=== PATIENT | female | born 1985 | race American Indian/Alaskan Native ===

== ENCOUNTER 2018-09-02 13:41 | Outpatient (CLI) | payer OTHER ==
[2018-09-02] MEDS ORDERED: LACTATED RINGERS 500 ML IV ONE (14:15)
[2018-09-02 14:54] LABS: Bacteria,Urine 1+ /HPF (Negative); Bilirubin,Urine NEG (Negative); Blood,Urine NEG (Negative); Color,Urine Yellow (Yellow); Mucus,Urine FEW /HPF; Protein,Urine <15 mg/dL mg/dL (Negative); Urobilinogen,Urine < 2.0 mg/dL (<2.0)
[2018-09-02 15:22] VITALS: BP 112/72
[2018-09-02 15:37] LABS: Alanine Aminotransferase 13 units/L (7-56); Uric Acid 2.8 mg/dL (3.5-7.6)
[2018-09-02 15:45] LABS: Basophils # (Auto) 0.1 K/mm3 (0.0-0.1); Eosinophils # (Auto) 0.1 K/mm3 (0.0-0.4); Eosinophils % (Auto) 1.7 % (0.0-4.3); Hematocrit 31.8 % (30.3-42.9); Hemoglobin 10.6 gm/dl (10.1-14.3); Lymphocytes % (Auto) 14.6 % (13.4-35.0); Mean Corpuscular HGB Conc 34 % (30-34); Mean Corpuscular Volume 91 fl (79-97); Monocytes # (Auto) 0.9 K/mm3 (0.0-0.8); Monocytes % (Auto) 13.8 % (0.0-7.3); Platelet Count 229 K/mm3 (140-440); Red Blood Count 3.49 M/mm3 (3.65-5.03); Red Cell Distribution Width 13.7 % (13.2-15.2)
== END 2018-09-02 16:12 | disposition home or self-care (01) ==
LOC: TRG 13:41
PROVIDERS: ATTEND Obstetrics & Gynecology
DX: O13.3 Gestational [pregnancy-induced] hypertension without significant proteinuria, third trimester (principal); Z3A.33 33 weeks gestation of pregnancy
CPT/HCPCS: 36415; 59025; 81001; 82565; 83615; 84450; 84460; 84550; 85025

== ENCOUNTER 2018-10-06 10:48 | Inpatient (IN) | payer OTHER ==
--- NOTE | 2018-10-06 13:12 | History and Physical Report ---
History of Present Illness Date of examination: 10/06/18 Date of admission: 10/06/18 10:48 History of present illness: Patient seen and [facility] maternal- medicine today with elevated blood pressures due to her gestational age and combination of gestational diabetes recommendations for delivery Menstrual History Regularity: regular Menses every: 28 days Duration: 6-7 LMP: 01/16/2018 LMP reliability: definite LMP character: normal test type: urine test Date: 04/22/2018 BC at conception: none Planned ? no EDC Calculations LMP: 10/23/2018 EDC Confirmation: 10/23/2018 Past History : 2 Term Births: 1 Living Children: 1 Para: 1 # 1 Delivery date: 2009 Weeks Gestation: FT Delivery type: Anesthesia type: epidural Delivery location: [facility] Infant Sex: Female weight: 8-2 Comments: CPD Past Medical History: Negative Past Medical History Past Medical History Abnormal PAP: negative MARILYN Exposure: negative Infertility: negative Uterine Anomaly: negative Uterine Surgery (not C/S): negative Other Gynecologic Problems: negative Medical History Comments: NEG Family Hx: DM HTN Social Hx: NO E/T/D HOSPITAL REG Infection History Varicella/Chicken Pox Status: Previous Disease Genetic History Congenital Heart Defect: Mom: no Dad: no Ely Disease: Mom: no Dad: no Thalassemia Mom: no Dad: no Neural Tube Defect Mom: no Dad: no Down's Syndrome Mom: no Dad: no Anibal-Sachs Mom: no Dad: no Sickle Cell Disease/Trait Mom: no Dad: no Hemophilia Mom: no Dad: no Muscular Dystrophy Mom: no Dad: no Cystic Fibrosis Mom: no Dad: no Ellis Chorea Mom: no Dad: no Mental Retardation Mom: no Dad: no Fragile X Mom: no Dad: no Other Genetic/Chromosomal Disorder Mom: no Dad: no Child w/other defect Mom: no Dad: no Enviromental Exposures Xray Exposure: no Medication, drug, or alcohol use since LMP: no Chemical/Other Exposure: no Exposure to Cat Liter: no Hx of Parvovirus (Fifth Disease): no Occupational Exposure to Children: none Current Allergies (reviewed today): No known allergies Past History Past Medical History: other (See HPI) Past Surgical History: section, other (See HPI) FLOW FLOOR ATTENDANT History: other (See HPI) Family/Genetic History: other (See HPI) Social history: other (See HPI) - Obstetrical History Expected Date of Delivery: 10/23/18 Actual Gestation: 37 Week(s) 4 Day(s) : 2 Para: 1 Hx # Term Pregnancies: 1 Number of Pregnancies: 0 Spontaneous Abortions: 0 Induced : 0 Number of Living Children: 1 Medications and Allergies Allergies Allergy/AdvReac Type Severity Reaction Status Date / Time No Known Allergies Allergy Unverified 09/02/18 14:41 Home Medications Medication Instructions Recorded Confirmed Last Taken Type Plus Tablet 1 tab PO DAILY 10/06/18 10/06/18 1 Day Ago History ~10/05/18 Review of Systems Constitutional: other (See HPI) - Vital Signs Vital signs: Vital Signs Pulse BP 75 203/106 10/06/18 12:28 10/06/18 12:28 Temp Pulse Resp BP Pulse Ox 97.0 F L 72 20 144/83 10/06/18 12:29 10/06/18 13:03 10/06/18 12:29 10/06/18 13:03 - Physical Exam Breasts: Positive: deferred Cardiovascular: Regular rate Lungs: Positive: Normal air movement Abdomen: Positive: normal appearance, soft Genitourinary (Female): Positive: normal external genitalia Uterus: Positive: enlarged - Obstetrical FHR: category 1 Uterine Contraction Pattern: Absent Uterine Tone Measurement Phase: Resting Results All other labs normal. Assessment and Plan - Patient Problems (1) Gestational diabetes Current Visit: Yes Status: Acute Qualifiers: Gestational diabetes mellitus control: diet-controlled Trimester: third trimester Qualified Code(s): O24.410 - Gestational diabetes mellitus in , diet controlled (2) Gestational hypertension Current Visit: Yes Status: Acute Qualifiers: Trimester: third trimester Qualified Code(s): O13.3 - Gestational [-induced] hypertension without significant proteinuria, third tri mester Plan to address problem: Patient seen and [facility] maternal- medicine today with elevated blood pressures due to her gestational age and combination of gestational diabetes recommendations for delivery (3) Uterine scar from previous delivery affecting Current Visit: Yes Status: Acute Plan to address problem: Patient admitted for repeat section. Patient informed the risks of the surgery include bleeding possibly bleeding heavy enough to require blood transfusion, infection possible damage to bowel bladder ureter. All questions answered. Patient agrees to proceed (4) BMI 45.0-49.9, adult Current Visit: Yes Status: Acute (5) GBS carrier Current Visit: Yes Status: Acute
[2018-10-06] MEDS ORDERED: LACTATED RINGERS 1,000 ML ONE (13:46)
[2018-10-06] MEDS ORDERED: APRESOLINE IV PRN (13:55)
--- NOTE | 2018-10-06 13:59 | Event Note ---
Date: 10/06/18 Patient denies any headache visual disturbances or abdominal pain. Patient's surgery was delayed to the semen due to her eating this morning. Patient is stable without any signs of symptoms of preeclampsia. Patient initially form nurses that she did not want blood products. I began discussing the risks of the surgery patient states that she desires blood products especially in cases of life and . We'll give patient a dose of labetalol and monitor her blood pressures
[2018-10-06] MEDS ORDERED: LACTATED RINGERS 1,000 ML IV SCH ×2 (14:00)
[2018-10-06] MEDS ORDERED: PITOCin/NS 20 UNIT/1000ML DRIP 20 UNITS/1,000 ML BAG IV SCH (14:00)
[2018-10-06 14:42] LABS: Hematocrit 33.4 % (30.3-42.9); Mean Corpuscular HGB Conc 33 % (30-34); Mean Corpuscular Volume 91 fl (79-97); Platelet Count 174 K/mm3 (140-440); Red Blood Count 3.67 M/mm3 (3.65-5.03); Red Cell Distribution Width 15.7 % (13.2-15.2)
[2018-10-06] MEDS ORDERED: NORMODYNE PO ONE (14:55)
[2018-10-06] MEDS ORDERED: BICITRA ONE (19:02)
[2018-10-06] MEDS ORDERED: REGLAN ONE (19:03)
[2018-10-06] MEDS ORDERED: PEPCID IV ONE ×2 (19:03→22:05)
[2018-10-06] MEDS ORDERED: ASTRAMORPH PF 10MG/10ML ONE (19:06)
[2018-10-06] MEDS ORDERED: SENSORCAINE/DEXTR 0.75-8.25% INFILTRATI ONE (19:06)
[2018-10-06] MEDS ORDERED: SUBLIMAZE ONE (19:07)
[2018-10-06] MEDS ORDERED: ZOFRAN IV PRN (19:19)
[2018-10-06] MEDS ORDERED: NARCAN 0.4 MG/1 ML IV PRN (19:19)
[2018-10-06] MEDS ORDERED: PHENERGAN PO PRN (19:19)
[2018-10-06] MEDS ORDERED: PHENERGAN PR PRN (19:19)
[2018-10-06] MEDS ORDERED: fentaNYL-BUPIV 2 MCG/ML-0.125% 200 MCG/100 ML BAG EPIDURAL SCH (20:00)
[2018-10-06] MEDS ORDERED: SODIUM CHLORIDE FLUSH SYRINGE 10 ML IV SCH (20:00)
[2018-10-06] MEDS ORDERED: WATER FOR IRRIG STERILE IR ONE (20:45)
[2018-10-06] MEDS ORDERED: NACL 0.9% IR ONE (20:45)
[2018-10-06] MEDS ORDERED: NACL 0.9% 1000 ML 1,000 ML ONE (21:06)
[2018-10-06] MEDS ORDERED: NEO SYNEPHRINE/NS Syringe(OR USE) IV ONE (21:14)
[2018-10-06] MEDS ORDERED: REGLAN IV ONE (22:05)
[2018-10-06] MEDS ORDERED: BICITRA PO ONE (22:05)
--- NOTE | 2018-10-06 22:29 | Operative Report ---
Operative Report Operative Report: Date of procedure: 10/06/2018 Pre-operative diagnosis: Intrauterine at 37 weeks with gestational elzbieta betes, gestational hypertension, previous section and desires permanent sterilization Post-operative diagnosis: Same plus pelvic adhesive disease Procedure name(s): Repeat low transverse section with tubal ligation modified Gorham type Surgeon: Trung Liz MD Kiss Mixer: Anesthesia: Spinal EBL: 700 mL Complications: None Findings: Patient with normal uterus with adhesions and anterior uterus to bladder normal tubes and ovaries bilaterally. Female infant weight 8 lbs. 0 oz. Apgars 7 at 1 minute and 9 at 5 minutes Specimen(s): Portion of the right and left fallopian tubes Procedure: The patient was brought to the operating room. A spinal was placed without any complications. She was then placed in left lateral tilt. Prepped and draped in the usual sterile manner. After testing for adequate anesthesia level, a Pfannenstiel incision was made through her previous scar. This incision was taken down to the fascia. The fascia was then nicked in the midline. This incision was extended out laterally with June scissors. The fascia was then sharply and bluntly from the underlying rectus muscles. The rectus muscles were bluntly and sharply . The peritoneum was then entered with the teletypewriter operator's fingers. This incision was spread vertically with care not to damage the bladder below. The bladder flap was then formed sharply and bluntly with Metzenbaum scissors scarring. The Praneeth self- retaining tractor was then placed without any difficulty. A transverse incision was made in lower uterine segment. This incision was extended laterally with the operators fingers. The amniotic sac was then entered bluntly with the teletypewriter operator's fingers. The was delivered from the vertex position. Bulb suction on the mother's abdomen. Cord was double clamped and cut. The infant was then passed to the nursery personnel who were in attendance. The above scores were given by the nursery personnel. The placenta was then bluntly removed. The uterus was then externalized and wiped clean the remaining products. The uterine incision was closed in layers. The first incision was closed in a locking manner using 0 Vicryl. This was followed by imbricating stitch also with 0 Vicryl. Attention was then switched to the patient's fallopian tubes. Each fallopian tube was identified by its fimbriated end. A portion of each tube was grabbed with the Efra clamp approximately 2-3 cm from the cornua. Each loop was double ligated with 0 plain suture. The loop were cut with Metzenbaum scissors. Each stump was found to be hemostatic and cauterized with the Bovie. Attention was then switched back to the uterine closure. This closure was hemostatic. The bladder flap was copiously irrigated and found to be hemostatic. The pelvis was copiously irrigated and found to be hemostatic. The uterus was then placed back to the patient's abdomen. The retractors were removed. The rectus muscles were inspected and found to be hemostatic. The fascia was then closed in a running manner using 0 Vicryl. This incision was hemostatic irrigation Bovie. The skin was reapproximated with 4-0 Vicryl subcuticularly. The patient tolerated procedure well. Her urine was clear. The was admitted to the well baby nursery. The patient was accompanied to recovery room in good condition. Instrument count correct x-3.
[2018-10-07] MEDS ORDERED: MILK OF MAGNESIA PO PRN (03:25)
[2018-10-07] MEDS ORDERED: LANSINOH TP PRN (03:25)
[2018-10-07] MEDS ORDERED: TUCKS PAD TP PRN (03:25)
[2018-10-07] MEDS ORDERED: PITOCin/NS 20 UNIT/1000ML DRIP 20 UNITS/1,000 ML BAG IV SCH (03:25)
[2018-10-07] MEDS ORDERED: NARCAN 0.4 MG/1 ML IV PRN (03:25)
[2018-10-07] MEDS ORDERED: D5LR 1,000 ML IV SCH (03:25)
[2018-10-07] MEDS ORDERED: MYLICON PO PRN (03:25)
[2018-10-07] MEDS ORDERED: ANUCORT-HC PR PRN (03:25)
[2018-10-07] MEDS ORDERED: ZOFRAN IV PRN (03:25)
[2018-10-07] MEDS ORDERED: SODIUM CHLORIDE FLUSH SYRINGE 10 ML IV PRN (03:25)
[2018-10-07] MEDS: ANCEF/NS 1 GM/50 ML 1 GM/50 ML BAG IV SCH ×2 (03:49→10:05)
[2018-10-07] MEDS: TORADOL IV SCH ×3 (03:51→22:27)
[2018-10-07] MEDS ORDERED: BOOSTRIX IM ONE (06:00)
--- NOTE | 2018-10-07 06:40 | Progress Note ---
Assessment and Plan - Patient Problems (1) delivery delivered Onset Date: ~10/07/18 Current Visit: Yes Status: Acute Plan to address problem: Pt happy and excited with her NB. "Isn't she beautiful." VSS FF @ umb Lochia small Dressing D&I H&H pending Doing well s/p repeat c/s with tubal P: continue pathway Advance diet and activity as tolerated. Encouraged IS use. Subjective - Subjective Date of service: 10/07/18 (no c/o pain) Principal diagnosis: Day#1(10 hours) S/P repeat section with tubal Patient reports: voiding normally (BSB yellow urine), pain well controlled : doing well Objective - Vital Signs Latest vital signs: Vital Signs Temp Pulse Resp BP BP Pulse Ox 10/06/18 22:40 70 23 124/68 97 10/06/18 22:25 56 L 19 129/70 100 10/06/18 22:10 55 L 135/61 10/06/18 22:05 73 139/61 10/06/18 22:00 97.7 F 65 20 124/76 100 10/06/18 19:38 78 154/83 10/06/18 19:27 78 147/80 10/06/18 19:26 78 12 147/80 10/06/18 19:08 77 154/85 10/06/18 18:38 74 133/78 10/06/18 18:08 90 134/94 10/06/18 17:46 85 148/89 10/06/18 17:38 93 H 143/89 10/06/18 17:08 93 H 134/87 10/06/18 16:38 85 139/81 10/06/18 16:08 91 H 141/90 10/06/18 15:09 71 137/88 10/06/18 15:00 60 144/84 10/06/18 14:31 60 144/84 10/06/18 13:46 73 145/91 10/06/18 13:31 65 148/93 10/06/18 13:17 66 141/92 10/06/18 13:03 72 144/83 10/06/18 12:46 61 173/96 10/06/18 12:29 97.0 F L 20 10/06/18 12:28 75 203/106 Intake and Output 10/06/18 10/06/18 10/07/18 14:59 22:59 06:59 Intake Total 1500 Balance 1500 Intake: IV 1500 Lactated Ringers 1,000 ml 1000 @ 125 mls/hr IV DIRECT RAMONA Rx#:[id number] Other: Weight 256 lb Patient Weight 10/07/18 06:59 Weight 256 lb - Exam Breasts: Present: normal Cardiovascular: Present: Regular rate Lungs: Present: Normal air movement Abdomen: Present: normal appearance, soft, normal bowel sounds (pt encouraged to use IS multiple times an hour) Uterus: Present: normal, fundal height at umbilicus Extremities: Present: normal Deep Tendon Reflex Grade: Normal +2 Incision: Present: normal, dry, intact, dressed (to be removed later today) - Labs Labs: Abnormal lab results 10/06/18 Range/Units 14:10 RDW 15.7 H (13.2-15.2) %
[2018-10-07] MEDS: NORMODYNE PO SCH ×2 (10:01→22:01)
[2018-10-07] MEDS: PRENATAL VITAMIN PO SCH (10:04)
[2018-10-07 11:01] LABS: Hematocrit 29.3 % (30.3-42.9); Hemoglobin 9.8 gm/dl (10.1-14.3)
[2018-10-07] MEDS: IBUPROFEN PO PRN (17:09)
[2018-10-07] MEDS ORDERED: TRIPLE ANTIBIOTIC TP SCH (18:00)
--- NOTE | 2018-10-07 21:41 | Post Anesthesia Evaluation ---
- Post Anesthesia Evaluation Patient Participated: Yes Airway Patent: Yes Stable Respiratory Function: Yes Nausea/Vomiting: No Temp > 96.8F: Yes Pain Manageable: Yes Adequeate Hydration: Yes Anesthesia Complications: No Block Receding Appropriately: Yes Patient on Ventilator: No
--- NOTE | 2018-10-08 07:44 | Progress Note ---
Assessment and Plan Patient doing well, breast feeding infant. pt c/o sharp pain starting in neck that radiates to head lasting approx 20 minutes x 2 yesterday while sitting up. Patient reports pain resolved spontaneously without pain medication or interventions. Pain does not improve with laying down. pt denies hx of neck/back pain. Lochia scant, Fundus firm, incision D&I. VSSAF w/ one elevated b/p yesterday 151/86 evening while on labetalol 200mg PO BID. Will consult Dr. Liz. RN to have anesthesia assess patient. - Patient Problems (1) delivery delivered Onset Date: ~10/07/18 Current Visit: Yes Status: Acute (2) Gestational hypertension Current Visit: Yes Status: Acute Qualifiers: Trimester: third trimester Qualified Code(s): O13.3 - Gestational [-induced] hypertension without significant proteinuria, third trimester Subjective - Subjective Date of service: 10/08/18 Principal diagnosis: Day#2 S/P repeat section with tubal Patient reports: appetite normal, voiding normally, pain well controlled, ambulating normally, other (sharp pain in neck and head occuring x 20 minutes with spontanouse resolution), no dizzy ambulation, no nauseated : doing well, nursing well Objective - Vital Signs Latest vital signs: Vital Signs Temp Pulse Resp BP BP Pulse Ox 10/08/18 01:55 98.3 F 73 18 123/70 10/07/18 22:01 78 151/86 10/07/18 21:55 98 F 78 18 151/86 98 10/07/18 17:09 20 10/07/18 15:50 99 F 89 20 128/76 10/07/18 10:00 20 10/07/18 09:10 98 F 85 20 127/75 Intake and Output 10/07/18 10/07/18 10/08/18 15:59 23:59 07:59 Intake Total 600 240 200 Output Total 600 Balance 0 240 200 Intake: Oral 600 200 Intake, Free Water 240 Output: Urine 600 Void 600 Other: Total, Intake Amount 360 200 Total, Output Amount 600 # Voids Void 1 1 2 - Exam Breasts: Present: normal, Cardiovascular: Present: Regular rate Lungs: Present: Clear to auscultation, Normal air movement Abdomen: Present: normal appearance, soft, normal bowel sounds. Absent: distention, tenderness, guarding Vulva: both: normal Uterus: Present: normal, firm, fundal height at umbilicus Extremities: Present: normal Deep Tendon Reflex Grade: Normal +2 Incision: Present: normal, dry, intact - Labs Labs: Abnormal lab results 10/07/18 Range/Units 10:27 Hgb 9.8 L (10.1-14.3) gm/dl Hct 29.3 L (30.3-42.9) %
[2018-10-08] MEDS: PRENATAL VITAMIN PO SCH (10:20)
[2018-10-08] MEDS: NORMODYNE PO SCH ×2 (10:20→23:20)
--- NOTE | 2018-10-08 10:34 | Event Note ---
Date: 10/08/18 (HEADACHE) CTSP re: headache. Pt is sitting up when I entered her room. She denies running a temperature and states her neck is a little stiff and she has a frontal RENDON. She denies vision changes. There is no change with position and no relief when she lays down. I asked pt to lie down and pay attention if there is any change. At this time doubt PDPH and will check on her again this afternoon.
--- NOTE | 2018-10-08 12:45 | Event Note ---
Date: 10/08/18 Patient lying in bed and holding infant. Patient denies any pain at present. Patient states lie down and rest relief of pain and has had no pain since earlier this morning. Continue to observe. Most likely musculoskeletal strain..
[2018-10-08] MEDS: IBUPROFEN PO PRN (23:19)
[2018-10-08] MEDS: NORCO 5/325 PO PRN (23:20)
[2018-10-09] MEDS: PRENATAL VITAMIN PO SCH (10:20)
[2018-10-09] MEDS: NORMODYNE PO SCH ×2 (10:20→22:31)
--- NOTE | 2018-10-09 11:43 | Progress Note ---
Assessment and Plan - Patient Problems (1) delivery delivered Onset Date: ~10/07/18 Current Visit: Yes Status: Acute Plan to address problem: -con't post op care -ambulation -doing well -incision healing well c/d/i (2) Gestational hypertension Current Visit: Yes Status: Acute Qualifiers: Trimester: third trimester Qualified Code(s): O13.3 - Gestational [-induced] hypertension without significant proteinuria, third trimester Plan to address problem: -bp stable on the labetalol -con't current management (3) Headache Current Visit: Yes Status: Acute Qualifiers: Headache chronicity pattern: acute headache Plan to address problem: -will obtain CT of head with and without contract to evaluate for reason for headache -con't close observation Subjective - Subjective Date of service: 10/09/18 Principal diagnosis: Day#2 S/P repeat section with tubal Interval history: Pt states that head ache was back this am and feels as if it has gotten worse. She denies any vision changes. Pain starts and base of neck and radiates forward. Stated that when she got pain meds yesterday the RENDON was improved. I d/w that given she has had elevated blood pressures and this head ache, I will need to obtain an CT can to r/o any brain bleed, swelling, ect. Pt agrees to study being done. I also d/w that if study is negative and pain improves as the day passes she may be d/c home. Pt states " I really just want to go home." I again stressed the importance of evaluation of her headache. Patient reports: appetite normal, voiding normally, pain well controlled, flatus, ambulating normally, no dizzy ambulation : doing well, nursing well Objective - Vital Signs Latest vital signs: Vital Signs Temp Pulse Resp BP BP Pulse Ox 10/09/18 08:10 97.7 F 75 18 139/75 10/09/18 03:44 98.6 F 66 16 129/78 97 10/09/18 00:16 97.4 F L 76 16 134/76 99 10/08/18 23:20 83 141/69 10/08/18 20:58 98.8 F 69 18 138/80 99 10/08/18 16:59 98.6 F 75 18 146/72 98 Intake and Output 10/08/18 10/09/1810/09/19 22:59 06:59 14:59 Intake Total 480 480 320 Balance 480 480 320 Intake: Oral 480 480 320 Other: Total, Intake Amount 480 480 320 # Voids Void 1 1 - Exam Breasts: Present: normal, . Absent: change in shape, swelling, mass, pain, engorged Cardiovascular: Present: Normal S1, Normal S2 Lungs: Present: Clear to auscultation, Normal air movement Abdomen: Present: normal appearance, soft, normal bowel sounds. Absent: distention, tenderness, guarding Uterus: Present: normal, firm, fundal height below umbilicus. Absent: bogginess, tenderness Extremities: Present: normal. Absent: tenderness, edema Deep Tendon Reflex Grade: Normal +2
[2018-10-09] MEDS: NORCO 5/325 PO PRN ×2 (15:00→22:34)
[2018-10-09] MEDS: IBUPROFEN PO PRN ×2 (15:00→22:31)
--- NOTE | 2018-10-09 16:25 | Event Note ---
Date: 10/09/18 CT of head without contrast done as per recommendations by radiology department. Report still pending at this time.
--- NOTE | 2018-10-09 21:26 | Cat Scan Report ---
PROCEDURE: CT HEAD/BRAIN WO CON TECHNIQUE: Spiral imaging of the brain was obtained without IV contrast. HISTORY: c/o headache and neck pain COMPARISONS: None FINDINGS: Brain: Brain density appears normal. No evidence of intracranial hemorrhage. No parenchymal hemorr bassam, mass lesions or mass effect are seen. No abnormal extra-axial fluid collects or masses are see n. Ventricles: Ventricles are normal size and are midline. Bone Windows: No evidence of skull fracture. Paranasal sinuses: There is minimal patchy mucosal disease in ethmoid air cells on the right. There i s opacification of a portion of the left sphenoid sinus. Paranasal sinuses visualized otherwise are c lear. Mastoid air cells: Clear. IMPRESSION: Negative unenhanced CT of the brain. Mild paranasal sinus disease as described.. Maxillary sinuses are not included on this scan. This document is electronically signed by Carlos Hernandez MD., October 09 2018 09:23:59 PM ET
[2018-10-10] MEDS: NORMODYNE PO SCH ×3 (09:57→21:31)
[2018-10-10] MEDS: PRENATAL VITAMIN PO SCH (09:57)
[2018-10-10] MEDS: NORCO 5/325 PO PRN ×2 (11:50→18:14)
[2018-10-10] MEDS: IBUPROFEN PO PRN ×2 (11:52→18:14)
--- NOTE | 2018-10-10 14:39 | Progress Note ---
Assessment and Plan - Patient Problems (1) delivery delivered Onset Date: ~10/07/18 Current Visit: Yes Status: Acute (2) Gestational hypertension Current Visit: Yes Status: Acute Qualifiers: Trimester: third trimester Qualified Code(s): O13.3 - Gestational [-induced] hypertension without significant proteinuria, third trimester Plan to address problem: -bp is not controlled at this time. -labetalol increased to 300mg po bid. -procardia 60mg XL added today. (3) Headache Current Visit: Yes Status: Acute Qualifiers: Headache chronicity pattern: acute headache Plan to address problem: -CT scan is negative -headache resolved at this time Subjective - Subjective Principal diagnosis: Day#4 S/P repeat section with tubal 2)gestational hyperternsion Interval history: Pt now states that headache has resolved. However all blood pressures have been elevated this am. All values have been elevated this am. Blood pressure cuff was changed and pb and bedside with pt sitting up with provider at bedsided was 177/102. Will give procardia po at this time. I d/w that her bp is not normal so she is not able to be d/c at this time. She is upset stating she desires to go home. Again explained the importance of blood pressure control. IV was d/c on yesterday. Will INT at this time in case IV meds need to be to be given. Patient reports: appetite normal, voiding normally, pain well controlled, no dizzy ambulation [place]: doing well, nursing well Objective - Vital Signs Latest vital signs: Vital Signs Temp Pulse Resp BP BP Pulse Ox 10/10/18 12:55 98.2 F 79 20 163/90 10/10/18 12:15 98.3 F 83 20 172/103 10/10/18 09:00 98.2 F 73 20 167/83 10/10/18 05:02 97.9 F 66 17 141/81 99 10/10/18 00:32 98.4 F 69 17 139/72 99 10/09/18 21:11 97.5 F L 64 17 153/93 100 10/09/18 16:00 98.4 F 69 18 149/94 Intake and Output 10/09/18 10/10/18 10/10/18 21:59 06:59 14:59 Intake Total 680 Balance 680 Intake: Oral 680 Other: Total, Intake Amount 320 # Voids Void 1 # Bowel Movements - Exam Cardiovascular: Present: Normal S1, Normal S2 Lungs: Present: Clear to auscultation, Normal air movement Abdomen: Present: normal appearance, soft, normal bowel sounds. Absent: distention, tenderness, guarding Uterus: Present: normal, firm, fundal height below umbilicus. Absent: bogginess, tenderness Extremities: Present: normal. Absent: tenderness, edema Deep Tendon Reflex Grade: Normal +2 Incision: Present: normal, dry, intact
[2018-10-10] MEDS: PROCARDIA XL PO SCH (15:21)
[2018-10-10] MEDS ORDERED: APRESOLINE IV ONE (16:40)
[2018-10-11] MEDS: IBUPROFEN PO PRN ×2 (00:25→05:54)
[2018-10-11] MEDS: NORCO 5/325 PO PRN (05:59)
--- NOTE | 2018-10-11 06:19 | Discharge Summary ---
Providers - Providers Date of Admission: 10/06/18 10:48 Date of discharge: 10/11/18 (Pt desires d/c today) Attending physician: ALEAH ESPANA 10/07/18 03:25 Consult to Application Support Engineer [CONS] Routine Reason For Exam: Primary care physician: ALEAH ESPANA Hospitalization Reason for admission: section Delivery: Procedure: bilateral tubal ligation, repeat low transverse Episiotomy: none Laceration: none Incision: normal, dry, intact Other procedures: none complications: other (elevated BP GHTN started on Labetalol and Procardia XL) Discharge diagnosis: IUP at term delivered baby: female Hospital course: uncomplicated repeat section with tubal ligation Pt c/o pain but insists to go home today BP 130-120/80-70 afebrile FF below umb Lochia scant Incision D&I Doing well s/p c/s with GHtn P: d/c today with instructions RX Labetalol and Procardia RTO 10-14-18 @ 1415 Pt aware of appt and agrees to date and time. Condition at discharge: Good Disposition: DC- TO HOME OR SELFCARE - Discharge Diagnoses (1) delivery delivered Status: Acute Comment: RTO for postop visit (2) Gestational hypertension Status: Acute Qualifiers: Trimester: third trimester Qualified Code(s): O13.3 - Gestational [-induced] hypertension without significant proteinuria, third trimester Comment: Appt made for BP check 10-14-18 @ 1415 Plan - Discharge Medications Prescriptions: Ferrous Sulfate [Feosol 325 MG tab] 325 mg PO BID #60 tablet Ibuprofen [Motrin 800 MG tab] 800 mg PO Q6H PRN #30 tablet PRN Reason: Pain Labetalol [Normodyne TAB] 200 mg PO BID #60 tablet oxyCODONE /ACETAMINOPHEN [Percocet 5/325 mg] 1 - 2 tab PO Q4H PRN #30 tablet PRN Reason: Pain, Moderate NIFEdipine XL [Procardia Xl] 60 mg PO QDAY #30 tablet - Provider Discharge Summary Activity: routine, no sex for 6 weeks, no heavy lifting 4 weeks, no strenuous exercise Diet: routine Instructions: routine Additional instructions: [] Smoking cessation referral if applicable(refer to patient education folder for contact #) [] Refer to [facility] Booklet Call your doctor immediately for: * Fever > 100.5 * Heavy vaginal bleeding ( >1 pad per hour) * Severe persistent headache * Shortness of breath * Reddened, hot, painful area to leg or breast * Drainage or odor from incision. * Keep incision clean and dry at all times and follow doctor's instructions reg arding bathing/showering - Follow up plan Follow up: ALEAH ESPANA MD [Primary Care Provider] - 10/14/18 2:15 pm (Congratulations! Please take medications as prescribed. Call with headache, blurred vision, chest pain. Please keep appointment as scheduled on 10-14-18 at 2:15pm. Call with any concerns. [phone])
[2018-10-11 09:40] VITALS: BP 126/74
[2018-10-11] MEDS: PROCARDIA XL PO SCH (10:49)
[2018-10-11] MEDS: NORMODYNE PO SCH (10:49)
[2018-10-11] MEDS: PRENATAL VITAMIN PO SCH (10:49)
== END 2018-10-11 12:50 | disposition home or self-care (01) | DRG 765 ==
LOC: APU 10:48 → OB 10-07 00:16
PROVIDERS: ADMIT Obstetrics & Gynecology; ATTEND Obstetrics & Gynecology
PROC: 10D00Z1 Extraction of Products of Conception, Low, Open Approach (ICD-10-PCS; principal; 2018-10-06)
PROC: 0UB70ZZ Excision of Bilateral Fallopian Tubes, Open Approach (ICD-10-PCS; 2018-10-06)
DX: O34.211 Maternal care for low transverse scar from previous cesarean delivery (principal); O13.4 Gestational [pregnancy-induced] hypertension without significant proteinuria, complicating childbirth; Z68.42 Body mass index [BMI] 45.0-49.9, adult; O99.354 Diseases of the nervous system complicating childbirth; O24.420 Gestational diabetes mellitus in childbirth, diet controlled; O99.824 Streptococcus B carrier state complicating childbirth; R51 Headache; Z3A.37 37 weeks gestation of pregnancy; Z37.0 Single live birth; Z30.2 Encounter for sterilization; Z82.49 Family history of ischemic heart disease and other diseases of the circulatory system; Z83.3 Family history of diabetes mellitus
CPT/HCPCS: 36415; 70450; 85014; 85018; 85027; 86592; 86850; 86900; 86901; 88302; 90471; 90715; G0378; A6250; J0360; J0690; J1885; J2274; J2370; J2405; J2590; J2765; J3010; J7030; J7120; J7121